=== PATIENT | male | born 1950 | race Caucasian/White ===

== ENCOUNTER 2020-11-18 17:50 | Emergency (ER) | payer MEDICARE, OTHER ==
[~2020-11-18] VITALS: Ht 172.7 cm; Wt 86.2 kg
[~2020-11-18 17:50] MED LIST: ENALAPRIL MALEAT5 MG PO; METFORMIN HCL500 MG PO; PERCOCET 10-321 EACH PO; SIMVASTATIN10 MG PO; ZOFRAN ODT4 MG SL
[2020-11-18] MEDS ORDERED: LISINOPRIL10 MG PO (19:18)
== END 2020-11-18 22:06 | disposition home or self-care (01) ==
LOC: ED 17:50
DX: M47.812 Spondylosis without myelopathy or radiculopathy, cervical region (principal); R51.9 Headache, unspecified; E11.9 Type 2 diabetes mellitus without complications; I10 Essential (primary) hypertension; E78.00 Pure hypercholesterolemia, unspecified; Z87.891 Personal history of nicotine dependence; Z79.899 Other long term (current) drug therapy; Z79.84 Long term (current) use of oral hypoglycemic drugs
CPT/HCPCS: 70450; 72125; 99283-25

== ENCOUNTER 2022-02-28 13:26 | Emergency (ER) | payer MEDICARE ==
[~2022-02-28] VITALS: Ht 172.7 cm; Wt 86.2 kg
[~2022-02-28 13:26] MED LIST changes: +LISINOPRIL10 MG PO
[2022-02-28] MEDS ORDERED: SIMVASTATIN40 MG PO (13:40)
[2022-02-28] MEDS ORDERED: METFORMIN HCL500 M1 PO (13:40)
== END 2022-02-28 14:28 | disposition home or self-care (01) ==
LOC: ED 13:26
DX: S86.912A Strain of unspecified muscle(s) and tendon(s) at lower leg level, left leg, initial encounter (principal); X50.9XXA Other and unspecified overexertion or strenuous movements or postures, initial encounter; E11.9 Type 2 diabetes mellitus without complications; I10 Essential (primary) hypertension; E78.00 Pure hypercholesterolemia, unspecified; Z87.891 Personal history of nicotine dependence; Z79.899 Other long term (current) drug therapy; Z79.84 Long term (current) use of oral hypoglycemic drugs
CPT/HCPCS: 99283

== ENCOUNTER 2023-05-04 11:51 | Day surgery (SDC) | payer MEDICARE, OTHER ==
[~2023-05-04] VITALS: Ht 172.7 cm; Wt 77.3 kg
--- NOTE | ~2023-05-04 | OR ---
[facility] [address], [place] [address] Draft DATE OF OPERATION: 05/04/2023 SURGEON: Caryn Smith MD PREOPERATIVE DIAGNOSIS: History of polyps, colon screening. POSTOPERATIVE DIAGNOSES: 1. Left-sided sigmoid diverticulosis. 2. Rough anoderm of anal canal, uncertain significance. PROCEDURE: Total colonoscopy to cecum. ANESTHESIA: Intravenous sedation; fentanyl 150 mcg and Versed 6 mg. INDICATION: This 73-year-old white man is a patient of Dr. Rivera. He underwent prostatectomy at [facility] in March of this year. He is here for colonoscopy. He has been noted to have polyps in the distant past. His last colonoscopy was more than 20 years ago he thinks. He has no symptoms of bleeding, diarrhea or constipation. FINDINGS: In the rectal examination showed excoriated and chronically inflamed anal canal area. It was not specific to neoplasm proper, but was not normal. The remaining colon was well prepped. Diverticula were noted of the sigmoid. There was no sign of polyps or colitis. DESCRIPTION OF PROCEDURE: The patient was brought to the endoscopy suite and placed in the lateral decubitus position, given intravenous sedation to the point of slurred speech and nystagmus. Full cardiopulmonary monitoring was maintained. Digital rectal examination showed a roughed edge of the anal canal more so than I would expect normally. It was not neoplastic particularly. Subsequent closer examination in the recovery room confirmed excoriation and what appeared to be possibly a posterior anal fissure. An Olympus video colonoscope was passed in the rectum and manipulated throughout the colon ultimately intubating the cecum itself. The ileocecal valve and appendiceal orifice were normal. Scope was withdrawn from that point and examination showed no sign PATIENT NAME: DAVID CHIRINOS OPERATIVE REPORT DATE OF : 48 REPORT #: [id number] PHYSICIAN: CARYN SMITH MD PCP: MICHELE RIVERA DO REPORT IS CONFIDENTIAL AND NOT TO BE RELEASED WITHOUT AUTHORIZATION [facility] [address] [place] [id number] Draft of abnormality other than diverticula of the left colon and sigmoid. Retroflexed view of the rectum was normal as well. The patient was taken to the recovery room in good condition having suffered no complication. 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 This is uncertain. PLAN: He will see us back in the office in 1 to 4 weeks and we will re-examine the anal canal and probably provide biopsy under local anesthesia. We will additionally evaluate if there is indeed a chronic posterior anal fissure. MD TIFFANY Rivas/KALLI /[id number] cc: Michele Rivera DO Copies: MICHELE RIVERA DO ~ PATIENT NAME: DAVID CHIRINOS OPERATIVE REPORT DATE OF : 48 REPORT #: [id number] PHYSICIAN: CARYN SMITH MD PCP: MICHELE RIVERA DO REPORT IS CONFIDENTIAL AND NOT TO BE RELEASED WITHOUT AUTHORIZATION
[~2023-05-04 11:51] MED LIST changes: +METFORMIN HCL500 M1 PO; +SIMVASTATIN40 MG PO
[2023-05-04 12:12] VITALS: BP 139/72
--- NOTE | 2023-05-04 12:58 | NUR ---
PT'S GLUCOMETER ON HIS ARM IS READING 124-125. PT'S BLOOD SUGAR TAKEN WITH TWO DIFFERENT DEPARTMENT MACHINE AND BOTH ARE READING 76. PT IS ASYMPTOMATIC. DR. SMITH NOTIFIED AND NEW ORDERS RECEIVED.
--- NOTE | 2023-05-04 13:39 | NUR ---
LE 1338 PATIENT BLOOD SUGAR 138 MG/DL.
--- NOTE | 2023-05-04 14:06 | NUR ---
PT RESTING IN BED WATCHING TELEVISION. PT UPDATED ON WAIT TIMES. PT STATES, "THAT'S OKAY. I HAVE ENTERTAINMENT" AND POINTS TO THE TELEVISION. CALL LIGHT WITH PT. PT HAS NO REQUESTS AT THIS TIME.
--- NOTE | 2023-05-04 14:41 | NUR ---
PT AMBULATED TO THE RESTROOM. TOLERATED WELL.
--- NOTE | 2023-05-04 16:08 | NUR ---
05/04/23 1608 Sheets,Mary 1542 PT ARRIVED TO PACU ON 3L VIA NC, PT WAKES OFF AND ON. PT DENIES COCNERNS. PT ENCOURAED TO DEEP BREATHE OFF AND ON. 1544 CBG 92 1549 MD AT BEDSIDE, RECTAL EXAM DONE WITH RN AT BEDSIDE. PT TO HAVE FOLLOW UP BX IN OFFICE PER MD. PT DENIES PAIN. 1601 O2 REMOVED AND HOB INCREASED. PT SIPPING WATER AND DENIES CONCERNS.
[2023-05-04 16:15] VITALS: BP 113/69
== END 2023-05-04 16:30 | disposition home or self-care (01) ==
LOC: OPS 11:51 → DS 11:51 → OPS 13:00 → DS 13:00 → OPS 16:30
PROVIDERS: ATTEND Surgery
PROC: 0DJD8ZZ Inspection of Lower Intestinal Tract, Via Natural or Artificial Opening Endoscopic (ICD-10-PCS; principal; 2023-05-04 13:00)
DX: Z12.11 Encounter for screening for malignant neoplasm of colon (principal); K57.30 Diverticulosis of large intestine without perforation or abscess without bleeding; K62.89 Other specified diseases of anus and rectum; C61 Malignant neoplasm of prostate; I10 Essential (primary) hypertension; E78.5 Hyperlipidemia, unspecified; E11.9 Type 2 diabetes mellitus without complications; Z79.84 Long term (current) use of oral hypoglycemic drugs; Z79.899 Other long term (current) drug therapy
CPT/HCPCS: G0121; 99153; G0500; J2250; J3010; J7121